=== PATIENT | female | born 1965 | race Two or more races ===

== ENCOUNTER 2023-05-08 23:36 | Emergency (ER) | payer MEDICAID ==
[~2023-05-08] VITALS: Ht 157.5 cm; Wt 87.1 kg
[2023-05-09] MEDS ORDERED: ACETAMINOPHEN ES 500 MG TABLET PO ONE
[2023-05-09] MEDS ORDERED: ACETAMINOPHEN ES 500 MG TABLET ONE (00:12)
[2023-05-09] MEDS ORDERED: BENAZEPRIL HCL 10 MG TABLET ONE (02:57)
[2023-05-09] MEDS ORDERED: BENAZEPRIL HCL 10 MG TABLET PO ONE (03:00)
[2023-05-09 05:02] VITALS: BP 170/65; TEMP 97.9; O2SAT 99
== END 2023-05-09 05:11 | disposition home or self-care (01) ==
LOC: ER 23:42
DX: S00.03XA Contusion of scalp, initial encounter (principal); I10 Essential (primary) hypertension; E11.9 Type 2 diabetes mellitus without complications; Z60.2 Problems related to living alone; V89.2XXA Person injured in unspecified motor-vehicle accident, traffic, initial encounter; Y93.89 Activity, other specified; Y92.89 Other specified places as the place of occurrence of the external cause; Y99.8 Other external cause status
CPT/HCPCS: 70450-TC; 71045-TC